=== PATIENT | female | born 1985 ===

== ENCOUNTER → 2024-06-27 10:13 | Outpatient (BNVA) | payer BC, OTHER, SELFPAY | PROVIDERS: Visit Provider Psychiatry & Neurology Neurology | DX: G35 Multiple sclerosis (principal); E53.8 Deficiency of other specified B group vitamins; E55.9 Vitamin D deficiency, unspecified | CPT/HCPCS: 36415; 80053; 82306; 82607; 82746; 83735; 83921; 84443; 85025 ==